=== PATIENT | male | born 1980 | race Caucasian/White ===

== ENCOUNTER 2018-04-30 17:35 | Emergency (ER) | payer MEDICAID ==
[~2018-04-30] VITALS: Ht 193 cm; Wt 74.8 kg
[2018-04-30 17:49] VITALS: BP 121/81
== END 2018-04-30 21:25 | disposition home or self-care (01) ==
LOC: ER 17:39
DX: L03.114 Cellulitis of left upper limb (principal)
CPT/HCPCS: 73130